=== PATIENT | male | born 1985 | race Caucasian/White ===

== ENCOUNTER 2017-12-20 11:46 | Emergency (ER) | payer SELFPAY ==
[~2017-12-20] VITALS: Ht 175.3 cm; Wt 80.3 kg
[2017-12-20 11:55] VITALS: BP 142/96; Ht 175.3 cm; Wt 80.3 kg
== END 2017-12-20 12:40 | disposition home or self-care (01) ==
LOC: ED 11:46
DX: M54.5 Low back pain (principal); M54.6 Pain in thoracic spine; V49.9XXA Car occupant (driver) (passenger) injured in unspecified traffic accident, initial encounter; Y93.I9 Activity, other involving external motion; Y92.413 State road as the place of occurrence of the external cause; Y99.8 Other external cause status